=== PATIENT | male | born 2000 | race Caucasian/White ===

== ENCOUNTER → 2020-04-13 | Outpatient (CLI) | payer OTHER ==
--- NOTE | 2020-04-13 15:55 | Diagnostic Imaging Report ---
PROCEDURE: US Scrotum. TECHNIQUE: Multiple real-time grayscale images were obtained over the scrotum in various projections bilaterally. INDICATION: Left testicular pain. FINDINGS: Right testicle measures 4.7 x 2.3 x 2.9 cm and the left testicle measures 4.8 x 2.3 x 3.4 cm. Both testes demonstrate homogeneous echotexture. No discrete testicular masses identified. There is blood flow to both testes. Epididymides are unremarkable. No hydrocele or varicocele is detected. IMPRESSION: Unremarkable testicular ultrasound. Dictated by: Dictated on workstation # [id number]
== END ==
LOC: RAD 14:43
PROVIDERS: ATTEND Pediatrics
DX: N50.812 Left testicular pain (principal)
CPT/HCPCS: 76870

== ENCOUNTER → 2022-04-04 | Outpatient (CLI) | payer BC | LOC: CARD 13:30 | PROVIDERS: ATTEND Internal Medicine Cardiovascular Disease | DX: I10 Essential (primary) hypertension (principal); I25.10 Atherosclerotic heart disease of native coronary artery without angina pectoris | CPT/HCPCS: 93306 ==

== ENCOUNTER 2022-06-18 04:04 | Emergency (ER) | payer BC ==
[2022-06-18] MEDS ORDERED: ASPIRIN 81 MG CHEW (CHILDREN'S ASA) PO ONE (04:30)
--- NOTE | 2022-06-18 04:39 | ED Cardiac General ---
History of Present Illness General Chief Complaint: Cardiac/General Problems Stated Complaint: CP,SOB,COUGH,NAUSEA Source: patient History of Present Illness Date Seen by Provider: Jun 18, 2022 Time Seen by Provider: 04:10 Initial Comments PT ARRIVES VIA POV FROM HOME C/O CHEST PAIN, SHORTNESS OF BREATH AND RACING AND POUNDING HEART BEAT STATES THAT HE HAD HIS FIRST COVID VACCINE 01/28/2022, AND DEVELOPED MYOCARDITIS AFTERWARDS--HE WAS INITIALLY SEEN BY DR. STOCK AT [facility] AND REFERRED TO DR. POLLACK--HE WAS HAVING THESE SAME SYMPTOMS AT THE TIME HE SAW DR. POLLACK, AND HAD ECHOCARDIOGRAM WHICH WAS REPORTEDLY NORMAL, AND DR. POLLACK CLEARED HIM TO HAVE SECOND COVID VACCINE, WHICH HE HAD ON 04/12/22 SINCE HIS SECOND VACCINE HE HAS CONTINUED TO HAVE THESE SYMPTOMS HAS A CONSTANT BURNING IN HIS CHEST, FEELS SHORT OF BREATH, FEELS LIKE HIS HEA RT IS BEATING OUT OF HIS CHEST, FEELS VERY TIRED ALL THE TIME. HAS NAUSEA WHEN THE PAIN IS BAD STATES HE HAS BILATERAL FLANK PAIN WELL STATES IT IS HARD TO LAY FLAT DUE TO WORSENING OF SYMPTOMS, AND HE HAS NOT BEEN ABLE TO SLEEP STATES SYMPTOMS HAVE BEEN MUCH WORSE FOR THE LAST 24 HOURS--ESPECIALLY WITH THE SENSATION OF HIS HEART POUNDING AND FEELING LIKE IT IS BEATING OUT OF HIS CHEST, AND WITH BURNING IN HIS CHEST--STATES IT DOES NOT FEEL LIKE CHEST PAIN--JUST A BAD BURNING SENSATION IN HIS CHEST. HE IS ALSO FEELING MORE SHORT OF BREATH THE LAST 24 HOURS AND HAS BEEN VERY TIRED A COUPLE OF WEEKS AGO, HE HAD SYMTPOMS OF A SINUS INFECTION, BUT THOSE SYMPTOMS RESOLVED AND HE NEVER SOUGHT CARE FOR THAT PROBLEM NO FEVER NO COUGH HE HAS BEEN TAKING IBUPROFEN 400 MG EVERY DAY STATES HE HAD NOT HAD PRIOR ISSUES WITH ANXIETY, BUT SINCE HE DEVELOPED THE MYOCARDITIS, HE HAS BECOME ANXIOUS AND IS VERY WORRIED ABOUT HIS HEART. HE HAS NOT SOUGHT CARE WITH ANYONE SINCE DR. 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 HE LAST WORKED ON Friday06/15/22. 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 DENIES ANY OTHER MEDICAL PROBLEMS. NO HISTORY OF SMOKING, ALCOHOL OR DRUG USE. PT IS A [employer] STUDENT FROM [place] Allergies and Home Medications Allergies Coded Allergies: No Known Drug Allergies (Unverified , 06/18/22) Patient Home Medication List Home Medication List Reviewed: Yes Review of Systems Review of Systems Constitutional: No chills, No diaphoresis, No dizziness, No fever; malaise EENTM: See HPI, Nose Congestion Respiratory: See HPI, Orthopnea, Shortness of Air Cardiovascular: See HPI, Chest Pain; Denies Edema, Denies Lightheadedness; Palpitations; Denies Syncope Gastrointestinal: See HPI; Denies Abdominal Pain; Nausea; Denies Vomiting Genitourinary: No Symptoms Reported Musculoskeletal: see HPI, back pain Skin: no symptoms reported Psychiatric/Neurological: See HPI, Anxiety Endocrine: No Symptoms Reported Hematologic/Lymphatic: No Symptoms Reported Past Aefwlft-Eiwoas-Umwzgj Hx Patient Social History Tobacco Use?: No Smoking Status: Never a Smoker Smokeless Tobacco Frequency: Never a User Use of E-Cig and/or Vaping dev: No Use of E-Cig and/or Vaping Destin: Never a User Substance use?: No Alcohol Use?: No Pt feels they are or have been: No Immunizations Up To Date Influenza Vaccine Up-to-Date: Yes; Up-to-Date First/Initial COVID19 Vaccinat: 01/28/22 Second COVID19 Vaccination Tru: 04/12/22 COVID19 Vaccine Speech Teacher: S[place]NEY Past Medical History Surgeries: No Respiratory: No Cardiac: Yes (MYOCARDITIS 02/2022 POST COVID VACCINE) Neurological: No Genitourinary: No Gastrointestinal: No Musculoskeletal: No Endocrine: No HEENT: No Cancer: No Psychosocial: No Integumentary: No Blood Disorders: No Family Medical History ECHOCARDIOGRAM 04/04/[address] POLLACK: -ESSENTIALLY NORMAL ECHO WITH EF 50-55%. NO WALL MOTION ABNORMALITIES. MILD PULMONARY ARTERY REGURGITATION. Physical Exam Vital Signs Vital Signs - First Documented 06/18/22 04:12 Temp 36.4 Pulse 113 Resp 22 B/P (MAP) 148/96 (113) Pulse Ox 100 O2 Delivery Room Air Capillary Refill : Height, Weight, BMI Height: '" Weight: lbs. oz. kg; BMI Method: General Appearance: No Apparent Distress, WD/WN, Anxious (VERY ANXIOUS) HEENT: PERRL/EOMI Neck: Full Range of Motion, Normal Inspection, Non Tender, Supple; No Carotid Bruit, No JVD Respiratory: Chest Non Tender, Normal Breath Sounds, No Accessory Muscle Use, No Respiratory Distress, Other (MILD HYPERVENTILATION ON ARRIVAL) Cardiovascular: Regular Rate, Rhythm, No Edema, No JVD, No Murmur, Normal Peripheral Pulses Gastrointestinal: Non Tender, Soft Extremity: Normal Inspection Neurologic/Psychiatric: Alert, Oriented x3, No Motor/Sensory Deficits, log deck tender II-XII Norm as Tested Skin: Normal Color, Warm/Dry Progress/Results/Core Measures Results/Orders Lab Results Laboratory Tests Test 06/18/22 04:24 Range/Units White Blood Count 8.4 4.3-11.0 10^3/uL Red Blood Count 5.55 H 4.30-5.52 10^6/uL Hemoglobin 16.7 13.3-17.7 g/dL Hematocrit 47 40-54 % Mean Corpuscular Volume 85 80-99 fL Mean Corpuscular Hemoglobin 30 25-34 pg Mean Corpuscular Hemoglobin Concent 35 32-36 g/dL Red Cell Distribution Width 11.8 10.0-14.5 % Platelet Count 284 130-400 10^3/uL Mean Platelet Volume 9.6 9.0-12.2 fL Immature Granulocyte % (Auto) 0 % Neutrophils (%) (Auto) 70 42-75 % Lymphocytes (%) (Auto) 23 12-44 % Monocytes (%) (Auto) 6 0-12 % Eosinophils (%) (Auto) 1 0-10 % Basophils (%) (Auto) 0 0-10 % Neutrophils # (Auto) 5.9 1.8-7.8 10^3/uL Lymphocytes # (Auto) 1.9 1.0-4.0 10^3/uL Monocytes # (Auto) 0.5 0.0-1.0 10^3/uL Eosinophils # (Auto) 0.1 0.0-0.3 10^3/uL Basophils # (Auto) 0.0 0.0-0.1 10^3/uL Immature Granulocyte # (Auto) 0.0 0.0-0.1 10^3/uL Erythrocyte Sedimentation Rate 4 0-15 MM/HR Prothrombin Time 13.4 12.2-14.7 SEC INR Comment 1.0 0.8-1.4 Activated Partial Thromboplast Time 37 H 24-35 SEC Sodium Level 136 135-145 MMOL/L Potassium Level 3.0 L 3.6-5.0 MMOL/L Chloride Level 101 98-107 MMOL/L Carbon Dioxide Level 23 21-32 MMOL/L Anion Gap 12 5-14 MMOL/L Blood Urea Nitrogen 11 7-18 MG/DL Creatinine 0.96 0.60-1.30 MG/DL Estimat Glomerular Filtration Rate 115 BUN/Creatinine Ratio 11 Glucose Level 153 H 70-105 MG/DL Calcium Level 10.2 H 8.5-10.1 MG/DL Corrected Calcium 8.5-10.1 MG/DL Magnesium Level 1.9 1.6-2.4 MG/DL Total Bilirubin 1.0 0.1-1.0 MG/DL Aspartate Amino Transf (AST/SGOT) 20 5-34 U/L Alanine Aminotransferase (ALT/SGPT) 30 0-55 U/L Alkaline Phosphatase 98 40-136 U/L Total Creatine Kinase 89 30-200 U/L Creatine Kinase MB 0.8 <6.6 NG/ML Myoglobin 37.3 10.0-92.0 NG/ML Troponin I < 0.028 <0.028 NG/ML C-Reactive Protein High Sensitivity 0.14 0.00-0.50 MG/DL B-Type Natriuretic Peptide < 10.0 <100.0 PG/ML Total Protein 9.1 H 6.4-8.2 GM/DL Albumin 5.1 H 3.2-4.5 GM/DL Amylase Level 62 25-125 U/L Lipase 21 8-78 U/L Serum Alcohol < 10 <10 MG/DL Influenza Type A (RT-PCR) Not Detected Not Detecte Influenza Type B (RT-PCR) Not Detected Not Detecte SARS-CoV-2 RNA (RT-PCR) Not Detected Not Detecte My Orders Orders - ML BOYD DO Ed Iv/Invasive Line Start (06/18/22 04:09) Ekg Tracing (06/18/22 04:09) O2 (06/18/22 04:09) Monitor-Rhythm Ecg Trace Only (06/18/22 04:09) Chest 1 View, Ap/Pa Only (06/18/22 04:09) Alcohol (06/18/22 04:09) Amylase (06/18/22 04:09) Bnp Georgi (06/18/22 04:09) Cbc With Automated Diff (06/18/22 04:09) Comprehensive Metabolic Panel (06/18/22 04:09) Creatine Kinase (06/18/22 04:09) Creatine Kinase Mb (06/18/22 04:09) Hs C Reactive Protein (06/18/22 04:09) Drug Screen Stat (Urine) (06/18/22 04:09) Lipase (06/18/22 04:09) Magnesium (06/18/22 04:09) Protime With Inr (06/18/22 04:09) Partial Thromboplastin Time (06/18/22 04:09) Ua Culture If Indicated (06/18/22 04:09) Erythrocyte Sedimentation Rate (06/18/22 04:09) Myoglobin Serum (06/18/22 04:09) Troponin I Blaine (06/18/22 04:09) Covid 19 Inhouse Test (06/18/22 04:09) Influenza A And B By Pcr (06/18/22 04:09) Isolation Central Supply Req (06/18/22 04:09) Aspirin Chewable Tablet (Baby Aspirin Ch (06/18/22 04:30) Ct Angio Chest W (06/18/22 05:15) Iohexol Injection (Omnipaque 350 Mg/Ml 1 (06/18/22 05:30) Received Contrast (Hold Metformin- Contr (06/18/22 05:30) Ns (Ivpb) (Sodium Chloride 0.9% Ivpb Bag (06/18/22 05:30) Potassium Chloride (Tablet) (Klor Con Ta (06/18/22 06:30) Medications Given in ED Current Medications Medications Dose Ordered Sig/Anjali Route Start Time Stop Time Status Last Admin Dose Admin Aspirin 324 mg ONCE ONCE PO 06/18/22 04:30 06/18/22 04:31 DC 06/18/22 04:36 324 MG Iohexol 100 ml ONCE ONCE IV 06/18/22 05:30 06/18/22 05:32 DC 06/18/22 05:44 79 ML Sodium Chloride 100 ml ONCE ONCE IV 06/18/22 05:30 06/18/22 05:32 DC 06/18/22 05:44 70 ML Vital Signs/I&O 06/18/22 04:12 Temp 36.4 Pulse 113 Resp 22 B/P (MAP) 148/96 (113) Pulse Ox 100 O2 Delivery Room Air Progress Progress Note : Progress Note GIVEN ASPIRIN AND KCL UNEVENTFUL ER STAY NO ARRHYTHMIAS VITALS STABLE ANTICIPATED COURSE, NEED FOR FOLLOW UP WITH DR. POLLACK, AND RETURN PRECAUTIONS DI SCUSSED WITH PT Initial ECG Impression Date: Jun 18, 2022 Initial ECG Impression Time: 04:21 Initial ECG Rate: 75 Initial ECG Rhythm: Normal Sinus Initial ECG Impression: Nonspecific Changes (T WAVE INVERSION, ST DEPRESSION INFERIOR AND ANTERIOR/LATERALLY) Initial ECG Comparisson: No Previous ECG Available Diagnostic Imaging Comments CXR--NO ACUTE PROCESS, PENDING RADIOLOGIST REVIEW CT CHEST ANGIOGRAM--PER RADIOLOGIST REPORT AT 0621 FINDINGS: There are no pulmonary arterial filling defects. No PE. The aorta is nonacute. No edema or pneumonia. No chest mass. No effusion. The upper abdomen nonacute. IMPRESSION: No PE or other acute appearing abnormalities. Reviewed: Reviewed by Me Departure Impression Primary Impression: Palpitations Additional Impressions: Chest discomfort Anxiety Hypokalemia Disposition: 01 HOME, SELF-CARE Condition: Stable Departure-Patient Inst. Decision time for Depature: 06:23 Referrals: GIORGIO POLLACK MD NO,LOCAL PHYSICIAN (PCP) Primary Care Physician FADI FENG MD Patient Instructions: Anxiety, Adult (DC), Hypokalemia (DC), Palpitations (DC), Chest Pain (DC) Add. Discharge Instructions: HOME, REST TAKE 81 MG ASPIRIN DAILY FOLLOW UP WITH DR. POLLACK THIS WEEK FOR FURTHER CARE--CALL IN THE MORNING TO SCHEDULE APPOINTMENT RETURN TO ER IF SYMPTOMS WORSEN All discharge instructions reviewed with patient and/or family. Voiced understanding. ML BOYD DO Jun 18, 2022 04:39
[2022-06-18 04:45] LABS: BASOPHILS % (AUTO) 0 % (0-10); EOSINOPHILS # (AUTO) 0.1 10^3/uL (0.0-0.3); EOSINOPHILS % (AUTO) 1 % (0-10); HEMATOCRIT 47 % (40-54); HEMOGLOBIN 16.7 g/dL (13.3-17.7); LYMPHOCYTES # (AUTO) 1.9 10^3/uL (1.0-4.0); LYMPHOCYTES % (AUTO) 23 % (12-44); MEAN CORPUSCULAR HEMOGLOBIN 30 pg (25-34); MEAN CORPUSCULAR HGB CONC 35 g/dL (32-36); MEAN CORPUSCULAR VOLUME 85 fL (80-99); MEAN PLATELET VOLUME 9.6 fL (9.0-12.2); MONOCYTES # (AUTO) 0.5 10^3/uL (0.0-1.0); MONOCYTES % (AUTO) 6 % (0-12); NEUTROPHILS # (AUTO) 5.9 10^3/uL (1.8-7.8); NEUTROPHILS % (AUTO) 70 % (42-75); PLATELET COUNT 284 10^3/uL (130-400); WHITE BLOOD COUNT 8.4 10^3/uL (4.3-11.0)
[2022-06-18 04:52] LABS: PROTHROMBIN TIME PATIENT 13.4 SEC (12.2-14.7)
[2022-06-18 05:03] LABS: ALANINE AMINOTRANSFERASE 30 U/L (0-55); ALBUMIN 5.1 GM/DL (3.2-4.5); ALKALINE PHOSPHATASE 98 U/L (40-136); AMYLASE 62 U/L (25-125); BUN/CREATININE RATIO 11; CALCIUM 10.2 MG/DL (8.5-10.1); CARBON DIOXIDE 23 MMOL/L (21-32); CHLORIDE 101 MMOL/L (98-107); CREATINE KINASE 89 U/L (30-200); CREATININE SERUM 0.96 MG/DL (0.60-1.30); GFR ESTIMATED 115; GLUCOSE 153 MG/DL (70-105); LIPASE 21 U/L (8-78); MAGNESIUM 1.9 MG/DL (1.6-2.4); SODIUM 136 MMOL/L (135-145); TOTAL PROTEIN 9.1 GM/DL (6.4-8.2)
[2022-06-18 05:10] LABS: CREATINE KINASE MB 0.8 NG/ML (<6.6)
[2022-06-18] MEDS ORDERED: NS 100 ML (IVPB) BAG IV ONE (05:30)
[2022-06-18] MEDS ORDERED: HOLD METFORMIN - RECEIVED CONTRAST 20 ML VIAL IV SCH (05:30)
[2022-06-18] MEDS ORDERED: IOHEXOL 350 MG/ML 100 ML (OMNIPAQUE 350) VIAL IV ONE (05:30)
[2022-06-18 05:40] LABS: ERYTHROCYTE SEDIMENTATION RATE 4 MM/HR (0-15)
--- NOTE | 2022-06-18 06:20 | Diagnostic Imaging Report ---
PROCEDURE: CT angiography of the chest with contrast. TECHNIQUE: Multiple contiguous axial images were obtained through the chest after uneventful bolus administration of intravenous contrast. 3D reconstructed CTA MIP acquisitions were also performed. Auto Exposure Controls were utilized during the CT exam to meet ALARA standards for radiation dose reduction. INDICATION: Chest pain. FINDINGS: There are no pulmonary arterial filling defects. No PE. The aorta is nonacute. No edema or pneumonia. No chest mass. No effusion. The upper abdomen nonacute. IMPRESSION: No PE or other acute appearing abnormalities. Dictated by: Dictated on workstation # [id number]
[2022-06-18] MEDS ORDERED: KCL 10 MEQ TAB (MICRO K) PO ONE (06:30)
[2022-06-18 06:34] VITALS: BP 127/79
--- NOTE | 2022-06-18 08:02 | Diagnostic Imaging Report ---
INDICATION: Chest pain FINDINGS: The lungs clear. No failure, effusion or pneumothorax. IMPRESSION: Negative. Dictated by: Dictated on workstation # [id number]
== END 2022-06-18 06:36 | disposition home or self-care (01) ==
LOC: EDUNIT# 04:04 → ER 04:09
DX: R00.2 Palpitations (principal); R07.89 Other chest pain; F41.9 Anxiety disorder, unspecified; E87.6 Hypokalemia; Z20.822 Contact with and (suspected) exposure to COVID-19
CPT/HCPCS: 71045; 71275; 80053; 82150; 82550; 82553; 83690; 83735; 83874; 83880; 84484; 85025; 85610; 85652; 85730; 86141; 87636; 93005; 93041; 99284; G0480; 36415; 80320

== ENCOUNTER 2022-06-22 10:17 | Emergency (ER) | payer BC ==
[~2022-06-22] VITALS: Ht 170 cm; Wt 79.3 kg
[2022-06-22] MEDS ORDERED: morphine INJ 10 MG/ML 1ML (SYR OR VIAL) IVP STA (10:43)
[2022-06-22] MEDS ORDERED: NS IV 1000 ML 1,000 ML IV STA (10:43)
[2022-06-22] MEDS ORDERED: KETOROLAC 30 MG/ML VIAL IVP ONE (10:45)
[2022-06-22] MEDS ORDERED: ONDANSETRON 4 MG/2 ML (SDV) Z0FRAN IVP ONE (10:45)
[2022-06-22 10:54] LABS: BASOPHILS % (AUTO) 0 % (0-10); EOSINOPHILS % (AUTO) 0 % (0-10); HEMATOCRIT 44 % (40-54); HEMOGLOBIN 15.6 g/dL (13.3-17.7); LYMPHOCYTES # (AUTO) 1.5 10^3/uL (1.0-4.0); LYMPHOCYTES % (AUTO) 17 % (12-44); MEAN CORPUSCULAR HEMOGLOBIN 30 pg (25-34); MEAN CORPUSCULAR HGB CONC 35 g/dL (32-36); MEAN CORPUSCULAR VOLUME 86 fL (80-99); MONOCYTES # (AUTO) 0.4 10^3/uL (0.0-1.0); MONOCYTES % (AUTO) 5 % (0-12); NEUTROPHILS # (AUTO) 6.8 10^3/uL (1.8-7.8); NEUTROPHILS % (AUTO) 78 % (42-75); PLATELET COUNT 266 10^3/uL (130-400); WHITE BLOOD COUNT 8.8 10^3/uL (4.3-11.0)
[2022-06-22 11:00] LABS: ALBUMIN 4.7 GM/DL (3.2-4.5); CHLORIDE 104 MMOL/L (98-107); POTASSIUM 3.7 MMOL/L (3.6-5.0); SODIUM 137 MMOL/L (135-145)
--- NOTE | 2022-06-22 11:00 | ED GI ---
General Chief Complaint: Abdominal/GI Problems Stated Complaint: RIGHT FLANK PAIN Nursing Triage Note: PT TO RM 10 BY WC WITH C/O R FLANK PAIN ON AND OFF FOR ABOUT 2 WEEKS AND VOMIT X2 TODAY. PT STATES HE TOOK IBUPROFEN LAST NIGHT Source of Information: Patient Exam Limitations: No Limitations History of Present Illness Date Seen by Provider: Jun 22, 2022 Time Seen by Provider: 10:29 Initial Comments 21-year-old male with no pertinent past medical history coming in due to right flank pain. Has been going off and on for the past couple weeks. Worsened this morning acutely, sharp, severe, intermittent. Has never had pain like this before, and has not seen a doctor for it in the past. Developed some nausea and nonbloody nonbilious vomiting this morning. Denies any fever, dysuria, hematuria, abdominal pain, weakness, numbness, chest pain, shortness of breath, or any other concerns associated with it. Allergies and Home Medications Allergies Coded Allergies: No Known Drug Allergies (Unverified , 06/18/22) Patient Home Medication List Home Medication List Reviewed: Yes Ketorolac Tromethamine (Ketorolac Tromethamine) 10 Mg Tablet, 10 MG PO Q6H Prescribed by: WILMA MARCUM on 06/22/22 1133 Ondansetron (Ondansetron Odt) 4 Mg Tab.rapdis, 4 MG SL Q6H PRN for NAUSEA/VOMITING Prescribed by: WILMA MARCUM on 06/22/22 1133 Oxycodone HCl (Oxycodone HCl) 5 Mg Tablet, 5 MG PO Q6H PRN for PAIN-SEVERE (8- 10) Prescribed by: WILMA MARCUM on 06/22/22 1133 Tamsulosin HCl (Flomax) 0.4 Mg Cap, 0.4 MG PO DAILY Prescribed by: WILMA MARCUM on 06/22/22 1133 Review of Systems Review of Systems Constitutional: No fever EENTM: No Symptoms Reported Respiratory: No Symptoms Reported Cardiovascular: No Symptoms Reported Gastrointestinal: No Symptoms Reported Genitourinary: See HPI Musculoskeletal: no symptoms reported Skin: no symptoms reported Psychiatric/Neurological: No Symptoms Reported Endocrine: No Symptoms Reported Hematologic/Lymphatic: No Symptoms Reported All Other Systems Reviewed Negative Unless Noted: Yes Past Lzxntfq-Tlesym-Hlabll Hx Patient Social History Tobacco Use?: No Use of E-Cig and/or Vaping dev: No Substance use?: No Alcohol Use?: No Pt feels they are or have been: No Immunizations Up To Date Influenza Vaccine Up-to-Date: Yes; Up-to-Date First/Initial COVID19 Vaccinat: 01/28/22 Second COVID19 Vaccination Tru: 04/12/22 Past Medical History Surgery/Hospitalization HX: MYOCARDITIS Surgeries: No Respiratory: No Cardiac: Yes (MYOCARDITIS 02/2022 POST COVID VACCINE) Neurological: No Genitourinary: No Gastrointestinal: No Musculoskeletal: No Endocrine: No HEENT: No Cancer: No Psychosocial: No Integumentary: No Blood Disorders: No Family Medical History ECHOCARDIOGRAM 04/04/[address] POLLACK: -ESSENTIALLY NORMAL ECHO WITH EF 50-55%. NO WALL MOTION ABNORMALITIES. MILD PULMONARY ARTERY REGURGITATION. Physical Exam Vital Signs Vital Signs - First Documented 06/22/22 10:28 Temp 37.0 Pulse 75 Resp 16 B/P (MAP) 136/84 (101) Capillary Refill : Height/Weight/BMI Height: '" Weight: lbs. oz. kg; 27.00 BMI Method: General Appearance: WD/WN, mild distress HEENT: PERRL/EOMI, normal ENT inspection, TMs normal, pharynx normal Neck: non-tender, full range of motion, supple, normal inspection Respiratory: chest non-tender, lungs clear, normal breath sounds, no respiratory distress, no accessory muscle use Cardiovascular: regular rate, rhythm, no edema, no murmur Gastrointestinal: normal bowel sounds, non tender, soft; No distended, No guarding, No rebound Extremities: normal range of motion, non-tender, normal inspection, no pedal edema, no calf tenderness, normal capillary refill Back: normal inspection, no vertebral tenderness, CVA tenderness (R); No CVA tenderness (L) Neurologic/Psychiatric: no motor/sensory deficits, alert, normal mood/affect Skin: normal color, warm/dry Lymphatic: no adenopathy Progress/Results/Core Measures Results/Orders Lab Results Laboratory Tests Test 06/22/22 10:33 06/22/22 12:10 Range/Units White Blood Count 8.8 4.3-11.0 10^3/uL Red Blood Count 5.18 4.30-5.52 10^6/uL Hemoglobin 15.6 13.3-17.7 g/dL Hematocrit 44 40-54 % Mean Corpuscular Volume 86 80-99 fL Mean Corpuscular Hemoglobin 30 25-34 pg Mean Corpuscular Hemoglobin Concent 35 32-36 g/dL Red Cell Distribution Width 11.8 10.0-14.5 % Platelet Count 266 130-400 10^3/uL Mean Platelet Volume 10.0 9.0-12.2 fL Immature Granulocyte % (Auto) 0 % Neutrophils (%) (Auto) 78 H 42-75 % Lymphocytes (%) (Auto) 17 12-44 % Monocytes (%) (Auto) 5 0-12 % Eosinophils (%) (Auto) 0 0-10 % Basophils (%) (Auto) 0 0-10 % Neutrophils # (Auto) 6.8 1.8-7.8 10^3/uL Lymphocytes # (Auto) 1.5 1.0-4.0 10^3/uL Monocytes # (Auto) 0.4 0.0-1.0 10^3/uL Eosinophils # (Auto) 0.0 0.0-0.3 10^3/uL Basophils # (Auto) 0.0 0.0-0.1 10^3/uL Immature Granulocyte # (Auto) 0.0 0.0-0.1 10^3/uL Sodium Level 137 135-145 MMOL/L Potassium Level 3.7 3.6-5.0 MMOL/L Chloride Level 104 98-107 MMOL/L Carbon Dioxide Level 18 L 21-32 MMOL/L Anion Gap 15 H 5-14 MMOL/L Blood Urea Nitrogen 13 7-18 MG/DL Creatinine 1.05 0.60-1.30 MG/DL Estimat Glomerular Filtration Rate 104 BUN/Creatinine Ratio 12 Glucose Level 126 H 70-105 MG/DL Calcium Level 9.6 8.5-10.1 MG/DL Corrected Calcium 8.5-10.1 MG/DL Total Bilirubin 0.7 0.1-1.0 MG/DL Aspartate Amino Transf (AST/SGOT) 20 5-34 U/L Alanine Aminotransferase (ALT/SGPT) 25 0-55 U/L Alkaline Phosphatase 88 40-136 U/L Total Protein 8.0 6.4-8.2 GM/DL Albumin 4.7 H 3.2-4.5 GM/DL Lipase 19 8-78 U/L Urine Color BROWN H Urine Clarity CLOUDY Urine pH 6.5 5-9 Urine Specific [place] 1.025 H 1.016-1.022 Urine Protein 2+ H NEGATIVE Urine Glucose (UA) NEGATIVE NEGATIVE Urine Ketones 1+ H NEGATIVE Urine Nitrite NEGATIVE NEGATIVE Urine Bilirubin 1+ H NEGATIVE Urine Urobilinogen 1.0 < = 1.0 MG/DL Urine Leukocyte Esterase NEGATIVE NEGATIVE Urine RBC (Auto) 3+ H NEGATIVE Urine RBC TNTC H /HPF Urine WBC NONE /HPF Urine Squamous Epithelial Cells NONE /HPF Urine Crystals NONE /LPF Urine Bacteria NEGATIVE /HPF Urine Casts NONE /LPF Urine Mucus NEGATIVE /LPF Urine Culture Indicated NO My Orders Orders - WILMA MARCUM MD Ct Abd/Pelvis Wo(Kidney Stone) (06/22/22 10:43) Ed Iv/Invasive Line Start (06/22/22 10:43) Cbc With Automated Diff (06/22/22 10:43) Comprehensive Metabolic Panel (06/22/22 10:43) Lipase (06/22/22 10:43) Ua Culture If Indicated (06/22/22 10:43) Morphine Injection (Morphine Injection (06/22/22 10:43) Ketorolac Injection (Toradol Injection) (06/22/22 10:45) Ondansetron Injection (Zofran Injectio (06/22/22 10:45) Ns Iv 1000 Ml (Sodium Chloride 0.9%) (06/22/22 10:43) Fentanyl Inj (Sublimaze Injection) (06/22/22 11:30) Oxycodone Immediate Rel Tablet (Oxyir Ta (06/22/22 11:30) Medications Given in ED Current Medications Medications Dose Ordered Sig/Anjali Route Start Time Stop Time Status Last Admin Dose Admin Fentanyl Citrate 50 mcg ONCE ONCE IVP 06/22/22 11:30 06/22/22 11:32 DC 06/22/22 11:37 50 MCG Ketorolac Tromethamine 15 mg ONCE ONCE IVP 06/22/22 10:45 06/22/22 10:46 DC 06/22/22 10:52 15 MG Ondansetron HCl 4 mg ONCE ONCE IVP 06/22/22 10:45 06/22/22 10:46 DC 06/22/22 10:52 4 MG Oxycodone HCl 5 mg ONCE ONCE PO 06/22/22 11:30 06/22/22 11:32 DC 06/22/22 11:37 5 MG Vital Signs/I&O 06/22/22 10:28 Temp 37.0 Pulse 75 Resp 16 B/P (MAP) 136/84 (101) Blood Pressure Mean: 101 Progress Progress Note : Progress Note 41-year-old male presenting for right flank pain. ABCs were intact and vitals were stable on presentation. Physical exam with some CVA tenderness on the right and mild distress due to pain. An IV was placed and he was given morphine for pain as well as Zofran for nausea. Basic labs obtained as well as urinalysis. CT abdomen pelvis concerning for 3 mm stone on the right with some mild hydronephrosis which is consistent with his symptoms. He is well-appearing otherwise and I believe stable for discharge with a trial of passage as an outpatient with follow-up with urology. He was discharged home in stable condition with strict return precautions Diagnostic Imaging Diagonstic Imaging: CT (abd/pelvis without) Comments NAME: FARRAH VILLAR [facility] REC#: [id number] PT STATUS: REG ER : 2000 PHYSICIAN: WILMA MARCUM MD ADMIT DATE: 06/22/22/ER Draft Date of Exam:06/22/22 CT ABD/PELVIS WO(KIDNEY STONE) PROCEDURE: CT urinary tract, rule out kidney stone. TECHNIQUE: Multiple contiguous axial images were obtained through the abdomen and pelvis without the use of intravenous contrast. Auto Exposure Controls were utilized during the CT exam to meet ALARA standards for radiation dose reduction. INDICATION: Right flank pain. COMPARISON: None. DISCUSSION: The lung bases are well aerated. Normal heart size. No pleural or pericardial fluid. The liver, gallbladder, pancreas, stomach, spleen, and adrenal glands are unremarkable. There is a 3 x 2 mm stone just short of the right ureterovesical junction causing mild right hydronephrosis. No other renal stone identified on either side. The aorta is normal in caliber. No evidence for appendicitis. The large and small bowel loops appear within normal limits. No ascites or adenopathy. Bladder and prostate are unremarkable. No osseous abnormality identified. IMPRESSION: 1. 3 mm stone within the distal right ureter near the ureterovesical junction with mild upstream hydronephrosis. Dictated on workstation # [id number] Dict: 06/22/22 1107 Trans: 06/22/22 1119 [id number] Interpreted by: LO LOUIE MD Electronically signed by: Departure Impression Primary Impression: Ureterolithiasis Disposition: HOME, SELF-CARE Condition: Stable Departure-Patient Inst. Decision time for Depature: 12:30 Referrals: NO,LOCAL PHYSICIAN (PCP/Family) Primary Care Physician Patient Instructions: Kidney Stones in Adults Add. Discharge Instructions: You do have a 3 mm kidney stone on the right that is passing. Follow-up with a urologist of your choosing, the closest likely will be in [place], and you can just google 1 you would prefer to go to. Take the ketorolac every 6 hours for the next 3 days for pain, if you have pain on top of that you can take Tylenol and the oxycodone. Take the Zofran for nausea. The tamsulosin theoretically is to help you pass the stone which you will take daily. Scripts Tamsulosin HCl (Flomax) 0.4 Mg Cap 0.4 MG PO DAILY for 30 Days, #30 CAP Prov: WILMA MARCUM MD 06/22/22 Ondansetron (Ondansetron Odt) 4 Mg Tab.rapdis 4 MG SL Q6H PRN for NAUSEA/VOMITING for 5 Days, #20 TAB Prov: WILMA MARCUM MD 06/22/22 Oxycodone HCl (Oxycodone HCl) 5 Mg Tablet 5 MG PO Q6H PRN for PAIN-SEVERE (8-10) for 4 Days, #16 TAB Prov: WILMA MARCUM MD 06/22/22 Ketorolac Tromethamine (Ketorolac Tromethamine) 10 Mg Tablet 10 MG PO Q6H for 3 Days, #12 TAB Prov: WILMA MARCUM MD 06/22/22 Work/School Note: Work Release Form Date Seen in the Emergency Department: Jun 22, 2022 Return to Work: Jun 24, 2022 Restrictions: No Restrictions WILMA MARCUM MD Jun 22, 2022 11:00
[2022-06-22 11:01] LABS: CALCIUM 9.6 MG/DL (8.5-10.1)
[2022-06-22 11:02] LABS: GLUCOSE 126 MG/DL (70-105)
[2022-06-22 11:03] LABS: CARBON DIOXIDE 18 MMOL/L (21-32)
[2022-06-22 11:04] LABS: BILIRUBIN,TOTAL 0.7 MG/DL (0.1-1.0)
[2022-06-22 11:06] LABS: ALKALINE PHOSPHATASE 88 U/L (40-136); CREATININE SERUM 1.05 MG/DL (0.60-1.30); GFR ESTIMATED 104
[2022-06-22 11:07] LABS: BUN/CREATININE RATIO 12
[2022-06-22 11:09] LABS: ALANINE AMINOTRANSFERASE 25 U/L (0-55); LIPASE 19 U/L (8-78)
--- NOTE | 2022-06-22 11:20 | Diagnostic Imaging Report ---
PROCEDURE: CT urinary tract, rule out kidney stone. TECHNIQUE: Multiple contiguous axial images were obtained through the abdomen and pelvis without the use of intravenous contrast. Auto Exposure Controls were utilized during the CT exam to meet ALARA standards for radiation dose reduction. INDICATION: Right flank pain. COMPARISON: None. DISCUSSION: The lung bases are well aerated. Normal heart size. No pleural or pericardial fluid. The liver, gallbladder, pancreas, stomach, spleen, and adrenal glands are unremarkable. There is a 3 x 2 mm stone just short of the right ureterovesical junction causing mild right hydronephrosis. No other renal stone identified on either side. The aorta is normal in caliber. No evidence for appendicitis. The large and small bowel loops appear within normal limits. No ascites or adenopathy. Bladder and prostate are unremarkable. No osseous abnormality identified. IMPRESSION: 1. 3 mm stone within the distal right ureter near the ureterovesical junction with mild upstream hydronephrosis. Dictated by: Dictated on workstation # [id number]
[2022-06-22] MEDS ORDERED: fentaNYL INJ 100 MCG/2 ML AMP IVP ONE (11:30)
[2022-06-22] MEDS ORDERED: ONDA4TAB11 SL (11:33)
[2022-06-22] MEDS ORDERED: KETO10TA PO (11:33)
[2022-06-22] MEDS ORDERED: TMSL.4C PO (11:33)
[2022-06-22] MEDS ORDERED: OXYC5TAB PO (11:33)
[2022-06-22 12:20] LABS: CLARITY,URINE CLOUDY; COLOR,URINE BROWN; GLUCOSE, URINE (UA) NEGATIVE (NEGATIVE); KETONES,URINE 1+ (NEGATIVE); LEUKOCYTE ESTERASE ,URINE NEGATIVE (NEGATIVE); NITRITE,URINE NEGATIVE (NEGATIVE); PH,URINE 6.5 (5-9); PROTEIN,URINE 2+ (NEGATIVE)
[2022-06-22 12:27] LABS: BACTERIA,URINE NEGATIVE /HPF; BILIRUBIN,URINE 1+ (NEGATIVE); RBC,URINE TNTC /HPF
[2022-06-22 12:35] VITALS: BP 123/69
== END 2022-06-22 12:37 | disposition home or self-care (01) ==
LOC: EDUNIT# 10:17 → ER 10:19
DX: N13.2 Hydronephrosis with renal and ureteral calculous obstruction (principal)
CPT/HCPCS: 36415; 74176; 80053; 81000; 83690; 85025